=== PATIENT | female | born 1965 | race Caucasian/White ===

== ENCOUNTER 2017-09-14 22:45 | Inpatient (IN) | payer OTHER ==
[~2017-09-14] VITALS: Ht 165.1 cm; Wt 66.7 kg
[2017-09-14 22:55] VITALS: BP 97/60
[2017-09-14] MEDS ORDERED: CIPRO500 MG (23:01)
[2017-09-14] MEDS ORDERED: PHENERGAN 25 MG25 M1 PO (23:01)
[2017-09-14] MEDS ORDERED: TAMIFLU75 MG (23:02)
[2017-09-14] MEDS ORDERED: ONDANSETRON HCL4 M2 PO (23:02)
[2017-09-14 23:51] LABS: HEMATOCRIT 36.8 % (37.0-47.0); HEMOGLOBIN 12.1 gm/dL (12.0-15.0); MCH 30.2 pg (26.0-34.0); MCHC 32.9 g/dL (28.0-37.0); MPV 8.2 fl. (7.2-11.1); NUCLEATED RBCS 0 /100WBC; PLATELET COUNT* 179 thou/uL (150-400); RDW-CV 13.7 % (10.5-14.5); WBC 15.6 thou/uL (4.0-11.0)
[2017-09-15] VITALS (8 sets, daily range): BP systolic 92–105; BP diastolic 52–67
[2017-09-15] LABS: ANION GAP 13 mmol/L (7-16); BUN 62 mg/dL (7-18); CHLORIDE 95 mmol/L (98-107); CO2 24 mmol/L (21-32); CREATININE 4.7 mg/dL (0.6-1.3); GLUCOSE 114 mg/dL (70-99); POTASSIUM 3.3 mmol/L (3.5-5.1); SODIUM 132 mmol/L (136-145)
[2017-09-15 00:07] LABS: ALBUMIN 2.6 g/dL (3.4-5.0); ALKALINE PHOSPHATASE 197 U/L (46-116); LIPASE 51 U/L (73-393); SGOT 35 U/L (15-37); SGPT 45 U/L (30-65); TOTAL BILIRUBIN 1.3 mg/dL (<0.1-1.0); TOTAL PROTEIN 7.4 g/dL (6.4-8.2); TROPONIN-I LEVEL <0.06 ng/mL (<0.06)
[2017-09-15 01:03] LABS: ABSOLUTE LYMPHOCYTES 0.6 thou/uL (0.8-5.3); ABSOLUTE MONOCYTES 0.9 thou/uL (0.0-1.2)
[2017-09-15 01:05] LABS: PLATELET ESTIMATE ADEQUATE; TOXIC GRANULATION 1+
[2017-09-15 01:28] LABS: APTT 32.2 Seconds (25.0-31.3); INR 1.1; PROTIME 10.6 Seconds (9.20-11.50)
[2017-09-15 01:38] LABS: URINE BILIRUBIN NEGATIVE (Negative); URINE BLOOD 3+ (Negative); URINE CLARITY CLEAR; URINE COLOR YELLOW; URINE GLUCOSE-RANDOM NEGATIVE (Negative); URINE KETONES NEGATIVE (Negative); URINE LEUKOCYTES-REFLEX 1+ (Negative); URINE NITRITE-REFLEX NEGATIVE (Negative); URINE PROTEIN TRACE (Negative); URINE SPECIFIC GRAVITY <= 1.005 (1.005-1.030); URINE UROBILINOGEN 0.2 E.U./dl (0.2-1.0)
[2017-09-15 02:04] LABS: CASTS None Seen /LPF (None Seen); SQUAMOUS 0-3 Few /LPF (0-3)
[2017-09-15 02:06] LABS: BACTERIA-REFLEX 1-9 Few /HPF (None Seen); CRYSTALS None Seen /LPF (None Seen)
[2017-09-15 02:14] LABS: INFLUENZA A ANTIGEN None Detected (None Detect); INFLUENZA B ANTIGEN None Detected (None Detect)
[2017-09-15 07:05] LABS: ABSOLUTE LYMPHOCYTES 0.3 thou/uL (0.8-5.3); ABSOLUTE NEUTROPHILS 9.8 thou/uL (1.6-8.1); BASOPHILS 0.2 %; EOSINOPHILS 0.2 %; HEMATOCRIT 30.8 % (37.0-47.0); HEMOGLOBIN 10.2 gm/dL (12.0-15.0); MCH 30.7 pg (26.0-34.0); MCHC 33.2 g/dL (28.0-37.0); MCV 92.3 fL (80.0-100.0); MONOCYTES 8.7 %; MPV 8.3 fl. (7.2-11.1); NUCLEATED RBCS 0 /100WBC; PLATELET COUNT* 142 thou/uL (150-400); POLYS 87.9 %; RBC 3.34 mil/uL (4.20-5.00); RDW-CV 13.4 % (10.5-14.5); WBC 11.1 thou/uL (4.0-11.0)
[2017-09-15 07:28] LABS: CALCIUM 8.2 mg/dL (8.5-10.1); CREATININE 3.9 mg/dL (0.6-1.3); POTASSIUM 3.5 mmol/L (3.5-5.1)
[2017-09-16] VITALS: BP 97/54
[2017-09-16 02:27] LABS: SMEAR FOR EOSINOPHILS No Eosinophils Seen
[2017-09-16 04:03] VITALS: BP 99/55
[2017-09-16 05:26] LABS: ALBUMIN 1.5 g/dL (3.4-5.0); CALCIUM 8.4 mg/dL (8.5-10.1); PHOSPHORUS* 3.4 mg/dL (2.5-4.9); POTASSIUM 3.4 mmol/L (3.5-5.1)
[2017-09-16 05:46] LABS: CREATININE 2.9 mg/dL (0.6-1.3)
[2017-09-16 08:30] VITALS: BP 116/72
[2017-09-16 12:00] VITALS: BP 106/72
[2017-09-16 16:00] VITALS: BP 119/73
[2017-09-16 20:00] VITALS: BP 104/56
[2017-09-17] VITALS (7 sets, daily range): BP systolic 113–151; BP diastolic 65–76
[2017-09-17 04:41] LABS: URINE BILIRUBIN NEGATIVE (Negative); URINE BLOOD 2+ (Negative); URINE CLARITY CLEAR; URINE COLOR YELLOW; URINE GLUCOSE-RANDOM NEGATIVE (Negative); URINE KETONES NEGATIVE (Negative); URINE LEUKOCYTES NEGATIVE (Negative); URINE NITRITE NEGATIVE (Negative); URINE PROTEIN 1+ (Negative); URINE SPECIFIC GRAVITY 1.015 (1.005-1.030); URINE UROBILINOGEN 0.2 E.U./dl (0.2-1.0)
[2017-09-17 05:39] LABS: CASTS None Seen /LPF (None Seen); CRYSTALS None Seen /LPF (None Seen); MUCUS 4-6 Moderate strn/LPF (None Seen); SQUAMOUS 0-3 Few /LPF (0-3); URINE WBC 6-15 Few /HPF (0-5)
[2017-09-17 10:18] LABS: ALBUMIN 1.5 g/dL (3.4-5.0); CALCIUM 8.1 mg/dL (8.5-10.1); CREATININE 1.8 mg/dL (0.6-1.3); TOTAL BILIRUBIN 0.7 mg/dL (<0.1-1.0); TOTAL PROTEIN 5.3 g/dL (6.4-8.2)
[2017-09-17 10:19] LABS: POTASSIUM 2.9 mmol/L (3.5-5.1)
[2017-09-17 12:05] LABS: ANA INTERPRETATION Negative (Negative)
--- NOTE | 2017-09-17 15:32 | CON ---
[address] [address] CONSULTATION Name: TAMAYODANY K Room: [address] IN M.R.#: [id number] Admission: 09/15/17 Attend Phys: Renuka Madsen MD Discharge: Date of : 69 Report #: [id number] THIS REPORT FOR: //name// CC: Renuka Arteaga DATE OF SERVICE: 09/16/2017 INFECTIOUS DISEASE CONSULTATION ATTENDING PHYSICIAN: Dr. Madsen. REASON FOR EVALUATION: Complicated urinary tract infection, likely pyelonephritis. HISTORY OF PRESENT ILLNESS: Chart reviewed, the patient examined. This is a 51-year-old female without significant medical history, who presented after a several-day history of abdominal-related complaint and became progressively weak, had lightheadedness and dizziness and subsequently developed high fevers. Evaluation noted marked pyuria. ____ culture now with greater than 10-15 gram-negative rods. Blood cultures were sterile thus far. She is not encephalopathic. She is in significant distress at this point, describes sort of generalized abdominal pain. Empirically started on a dose of levofloxacin. ALLERGIES: PENICILLIN, WHICH CAUSES URTICARIA. CURRENT MEDICATIONS: Include lactobacillus, simethicone, ondansetron and acetaminophen. PAST MEDICAL HISTORY: Otherwise, unremarkable. SOCIAL HISTORY: Nonsmoker. Rare ethanol. FAMILY HISTORY: Noncontributory. REVIEW OF SYSTEMS: Admits to mild dyspnea. No recent weight loss. PHYSICAL EXAMINATION: GENERAL: [id number]-[id number] distress and she is lucid. VITAL SIGNS: Temperature 98.6, pulse 85, respirations 17 and blood pressure 106/72. SKIN: Warm, dry. HEENT: Otherwise, unremarkable. NECK: Supple. LUNGS: Somewhat diminished. A few scattered crackles at the bases. HEART: [place] [address] CONSULTATION Name: TAMAYODANY Room: [address]#: [id number] Admission: 09/15/17 Attend Phys: Renuka Madsen MD Discharge: Date of : 69 Report #: [id number] ABDOMEN: Soft. There are no overt peritoneal signs. There is no CVA tenderness. GENITOURINARY: Deferred. RECTAL: Deferred. LABORATORY DATA: Electrolytes: Sodium 132; potassium 3.3; chloride 95; bicarbonate is 24; BUN and creatinine 62 and 4.7 initially, repeat is 40 and 2.9. LFTs unremarkable, except for an alkaline phosphatase of 197 and total bilirubin of 1.3. Albumin of 2.6. Total protein 7.4. CBC: White count of 15.6, H and H 12.1 and 36.8 and platelets of 179,000. Lactic acid 0.8. Urinalysis, 16-25 white cells. Influenza antigen was negative. Chest x-ray was otherwise unremarkable. CT of abdomen and pelvis did not show any evidence of kidney swelling or perinephric stranding. Sed rate elevated at 92. Blood cultures sterile. ASSESSMENT AND PLAN: Pyelonephritis with evidence of gram-negative rods on culture. We will redose with quinolone and cefepime, pending the results. Adjust therapy as needed. We will add incentive spirometry as well. She may well develop some further issues with hydration or may show some evidence of pneumonitis. <ELECTRONICALLY SIGNED> By: Greg Fan MD 09/17/17 1532 [id number] Fan MD /nt
[2017-09-17 17:12] LABS: ANA INTERPRETATION Negative (())
[2017-09-18 04:25] LABS: CALCIUM 8.2 mg/dL (8.5-10.1); CREATININE 1.5 mg/dL (0.6-1.3); POTASSIUM 3.7 mmol/L (3.5-5.1)
[2017-09-18 04:55] VITALS: BP 124/73
[2017-09-18 08:13] VITALS: BP 121/75
[2017-09-18 12:00] VITALS: BP 130/89
[2017-09-18 13:49] LABS: % SATURATION 35 % (20-39); IRON 45 ug/dL (50-175)
[2017-09-18 16:00] VITALS: BP 118/60
[2017-09-18 17:08] LABS: IgA 165 mg/dL (87-352); IgG 607 mg/dL (700-1600); IgM 71 mg/dL (26-217)
[2017-09-18 17:45] VITALS: BP 118/60
[2017-09-18 20:00] VITALS: BP 116/73
[2017-09-19] VITALS: BP 120/74
[2017-09-19 01:15] LABS: URINE BILIRUBIN NEGATIVE (Negative); URINE BLOOD 2+ (Negative); URINE CLARITY CLEAR; URINE COLOR YELLOW; URINE GLUCOSE-RANDOM NEGATIVE (Negative); URINE KETONES NEGATIVE (Negative); URINE LEUKOCYTES NEGATIVE (Negative); URINE NITRITE NEGATIVE (Negative); URINE PROTEIN NEGATIVE (Negative); URINE UROBILINOGEN 0.2 E.U./dl (0.2-1.0)
[2017-09-19 01:28] LABS: CASTS None Seen /LPF (None Seen); SQUAMOUS >10 Many /LPF (0-3)
[2017-09-19 01:29] LABS: BACTERIA 1-9 Few /HPF (None Seen); URINE RBC 3-10 Few /HPF (0-2); URINE WBC 6-15 Few /HPF (0-5)
[2017-09-19 01:30] LABS: CRYSTALS None Seen /LPF (None Seen)
[2017-09-19 04:49] LABS: HEMATOCRIT 30.5 % (37.0-47.0); HEMOGLOBIN 10.4 gm/dL (12.0-15.0); MCH 30.8 pg (26.0-34.0); MCV 90.4 fL (80.0-100.0); MPV 8.3 fl. (7.2-11.1); RBC 3.38 mil/uL (4.20-5.00); RDW-CV 13.5 % (10.5-14.5); WBC 12.7 thou/uL (4.0-11.0)
[2017-09-19 04:51] VITALS: BP 103/33
[2017-09-19 05:22] LABS: ALBUMIN 1.8 g/dL (3.4-5.0); CALCIUM 7.9 mg/dL (8.5-10.1); CREATININE 1.2 mg/dL (0.6-1.3); MAGNESIUM 1.7 mg/dL (1.8-2.4); POTASSIUM 3.6 mmol/L (3.5-5.1); TOTAL BILIRUBIN 0.5 mg/dL (<0.1-1.0)
[2017-09-19 08:53] VITALS: BP 120/77
[2017-09-19 11:55] VITALS: BP 119/70
[2017-09-19 15:46] VITALS: BP 119/66
[2017-09-20] VITALS: BP 139/58
[2017-09-20 04:00] VITALS: BP 116/53
[2017-09-20 05:07] LABS: MCH 31.2 pg (26.0-34.0); MCHC 34.6 g/dL (28.0-37.0); RBC 3.22 mil/uL (4.20-5.00); RDW-CV 13.7 % (10.5-14.5); WBC 13.1 thou/uL (4.0-11.0)
[2017-09-20 05:19] LABS: ALBUMIN 1.9 g/dL (3.4-5.0); CALCIUM 8.3 mg/dL (8.5-10.1); CREATININE 1.1 mg/dL (0.6-1.3); MAGNESIUM 1.6 mg/dL (1.8-2.4); POTASSIUM 3.1 mmol/L (3.5-5.1); TOTAL BILIRUBIN 0.5 mg/dL (<0.1-1.0); TOTAL PROTEIN 5.5 g/dL (6.4-8.2)
[2017-09-20 08:30] VITALS: BP 123/76
[2017-09-20 12:00] VITALS: BP 126/77
[2017-09-20 15:30] VITALS: BP 120/77
[2017-09-20 17:26] LABS: MAGNESIUM 1.6 mg/dL (1.8-2.4); POTASSIUM 3.8 mmol/L (3.5-5.1)
[2017-09-20] MEDS ORDERED: INVANZ 1GM/NS 101 GM IV (17:47)
[2017-09-20 17:52] VITALS: BP 120/77
--- NOTE | 2017-09-22 15:49 | CON ---
[address] [address] CONSULTATION Name: DANY TAMAYO Room: [address] IN M.R.#: [id number] Admission: 09/15/17 Attend Phys: Renuka Madsen MD Discharge: 09/20/17 Date of : 69 Report #: [id number] THIS REPORT FOR: //name// CC: Renuka Arteaga DATE OF SERVICE: 09/15/2017 CONSULTING PHYSICIAN: Dr. Robertson. REASON FOR CONSULTATION: Acute kidney injury. HISTORY OF PRESENT ILLNESS: A 51-year-old female who is having some nausea, vomiting, abdominal discomfort, went into an urgent care, was diagnosed with a urinary tract infection, tested flu negative, but there was some concern for possible flu, so she was started on Tamiflu and then also started on Cipro for urinary tract infection. She was having some dysuria around the time of her symptoms. She does not have any history of frequent urinary tract infection. She has no known history of kidney disease. She was having some nausea and vomiting. No diarrhea. She has had decreased p.o. intake. Her abdominal discomfort is slightly better since being here. When she went to the urgent care, she also began taking ibuprofen 2 tablets every 6 hours to help with abdominal discomfort she was having. She presently does not have any complaints. Her abdominal discomfort is improved. REVIEW OF SYSTEMS: Constitutional, psych, heme, eyes, ENT, respiratory, cardiac, GI, , endocrine, all negative except as documented above. PAST MEDICAL HISTORY: No significant past medical history. HOME MEDICATIONS: No regular home medications. FAMILY HISTORY: Not pertinent in this 51-year-old female. SOCIAL HISTORY: Rare alcohol. PHYSICAL EXAMINATION: VITAL SIGNS: Blood pressure 92/52, pulse 95, respirations 26, temperature 36.7. GENERAL: No acute distress. EYES: Extraocular movements intact. EARS: Externally normal. CARDIOVASCULAR: Regular rate. LUNGS: No crackles. ABDOMEN: Soft. Some vague abdominal tenderness, but no significant tenderness to light palpation. No flank discomfort. No rebound or guarding. LYMPHATICS: [place] [address] CONSULTATION Name: TAMAYODANY K Room: [address]#: [id number] Admission: 09/15/17 Attend Phys: Renuka Madsen MD Discharge: 09/20/17 Date of : 69 Report #: [id number] PSYCHIATRIC: Awake, alert. LABORATORY DATA: White cell count 11.1, hemoglobin 10.2, platelets 142. Sodium 138, potassium 3.5, chloride 107, bicarbonate 19, BUN 55, creatinine 3.9, glucose 100, calcium 8.2, albumin was 3.6. UA appears infected. ASSESSMENT: 1. Acute kidney injury with admission creatinine of 4.7 in the setting of nausea, vomiting, decreased oral intake, ibuprofen and a complicated urinary tract infection. CK was okay. Kidneys were okay on the CT. Baseline creatinine unknown. 2. Hypoalbuminemia with an albumin of 2.6. 3. Urinary tract infection. 4. Carbon dioxide at 19. PLAN: 1. Renal function is improving. Continue IV fluids. 2. Urine culture is pending, defer management of antibiotics to primary service. 3. Renal ultrasound has been ordered. 4. We will add an LDH to evaluate for possible renal infarct, although this seems unlikely. Thank you for requesting my opinion in the care and management of this patient. <ELECTRONICALLY SIGNED> By: Alex Stockton MD 09/22/17 1549 [id number] Stockton MD /nt
== END 2017-09-20 18:30 | disposition home or self-care (01) | DRG 689 ==
LOC: M.ERS 22:45 → M.ICU 09-15 00:46 → M.TBA-ER 09-15 00:46 → M.2W 09-15 00:46 → M.ICU 09-15 01:58 → M.2W 09-15 14:35
PROVIDERS: Family Medicine; Internal Medicine; Internal Medicine Nephrology; Physician Assistant; ADMIT Internal Medicine
PROC: B548ZZA Ultrasonography of Superior Vena Cava, Guidance (ICD-10-PCS; principal; 2017-09-19)
PROC: 02HV33Z Insertion of Infusion Device into Superior Vena Cava, Percutaneous Approach (ICD-10-PCS; principal; 2017-09-19)
DX: N39.0 Urinary tract infection, site not specified (principal); N17.0 Acute kidney failure with tubular necrosis; R65.10 Systemic inflammatory response syndrome (SIRS) of non-infectious origin without acute organ dysfunction; E44.0 Moderate protein-calorie malnutrition; I95.9 Hypotension, unspecified; N12 Tubulo-interstitial nephritis, not specified as acute or chronic; E88.09 Other disorders of plasma-protein metabolism, not elsewhere classified; Z16.12 Extended spectrum beta lactamase (ESBL) resistance; R09.02 Hypoxemia; B96.20 Unspecified Escherichia coli [E. coli] as the cause of diseases classified elsewhere; E87.6 Hypokalemia; Z79.899 Other long term (current) drug therapy; Z88.0 Allergy status to penicillin; Z88.6 Allergy status to analgesic agent; Z68.24 Body mass index [BMI] 24.0-24.9, adult